=== PATIENT | female | born 1940 | race Native Hawaiian/Other Pacific Islander ===

== ENCOUNTER 2016-08-05 10:37 | Outpatient (CLI) | payer OTHER | END 2016-08-05 19:05 | disposition home or self-care (01) | LOC: US 10:37 | DX: E04.1 Nontoxic single thyroid nodule (principal) ==

== ENCOUNTER 2017-01-14 09:05 | Outpatient (CLI) | payer OTHER | END 2017-01-14 10:35 | disposition home or self-care (01) | LOC: US 09:05 | DX: M79.604 Pain in right leg (principal) ==

== ENCOUNTER 2017-07-15 07:57 | Outpatient (CLI) | payer OTHER ==
[2017-07-15 09:33] LABS: POTASSIUM 3.9 mmol/L (3.6-5.2)
== END 2017-07-15 19:11 | disposition home or self-care (01) ==
LOC: US 07:57
PROVIDERS: Internal Medicine Endocrinology, Diabetes & Metabolism
DX: E04.2 Nontoxic multinodular goiter (principal); R00.2 Palpitations; E78.4 Other hyperlipidemia
CPT/HCPCS: 36415; 80053; 80061

== ENCOUNTER 2017-08-24 10:28 | Outpatient (CLI) | payer OTHER | END 2017-08-24 19:56 | disposition home or self-care (01) | LOC: LABW 10:28 | DX: R76.0 Raised antibody titer (principal); H16.223 Keratoconjunctivitis sicca, not specified as Sjogren's, bilateral | CPT/HCPCS: 36415; 82784; 82785; 85651; 86140 ==

== ENCOUNTER 2018-07-21 08:24 | Outpatient (CLI) | payer OTHER ==
[2018-07-21 08:53] LABS: PLATELET COUNT 209 K/uL (152-353)
[2018-07-21 09:00] LABS: POTASSIUM 3.7 mmol/L (3.6-5.2)
== END 2018-07-21 19:13 | disposition home or self-care (01) ==
LOC: LABW 08:24
PROVIDERS: Specialist
DX: I10 Essential (primary) hypertension (principal); E04.2 Nontoxic multinodular goiter; I77.9 Disorder of arteries and arterioles, unspecified; Z79.899 Other long term (current) drug therapy
CPT/HCPCS: 36415; 80048; 80061; 80076; 84439; 84443; 84480; 85027

== ENCOUNTER 2018-10-31 07:03 | Outpatient (CLI) | payer OTHER | END 2018-10-31 22:44 | disposition home or self-care (01) | LOC: LABW 07:03 | PROVIDERS: Specialist | DX: I10 Essential (primary) hypertension (principal); E78.49 Other hyperlipidemia | CPT/HCPCS: 36415; 80061; 80076 ==

== ENCOUNTER 2018-12-30 08:29 | Outpatient (CLI) | payer OTHER ==
[2018-12-30 10:13] LABS: PLATELET COUNT 193 K/uL (152-353)
[2018-12-30 10:27] LABS: POTASSIUM 3.8 mmol/L (3.6-5.2)
== END 2018-12-30 22:58 | disposition home or self-care (01) ==
LOC: LABW 08:29
PROVIDERS: Nurse Practitioner Family
DX: H16.223 Keratoconjunctivitis sicca, not specified as Sjogren's, bilateral (principal); M25.551 Pain in right hip; R76.0 Raised antibody titer; R79.89 Other specified abnormal findings of blood chemistry
CPT/HCPCS: 36415; 80053; 85027; 85651; 86140

== ENCOUNTER 2019-01-05 10:51 | Outpatient (CLI) | payer OTHER | END 2019-01-05 19:53 | disposition home or self-care (01) | LOC: RAD 10:51 | DX: M25.551 Pain in right hip (principal) ==

== ENCOUNTER 2019-01-17 14:45 | Outpatient (CLI) | payer OTHER | END 2019-01-17 23:28 | disposition home or self-care (01) | LOC: RAD 14:45 | DX: R10.84 Generalized abdominal pain (principal) ==

== ENCOUNTER 2019-03-14 07:01 | Outpatient (CLI) | payer OTHER ==
[2019-03-14 07:57] LABS: POTASSIUM 3.9 mmol/L (3.6-5.2)
[2019-03-14 08:03] LABS: PLATELET COUNT 222 K/uL (152-353)
== END 2019-03-14 19:20 | disposition home or self-care (01) ==
LOC: LAB 07:01
PROVIDERS: Nurse Practitioner Family
DX: E55.9 Vitamin D deficiency, unspecified (principal); E56.8 Deficiency of other vitamins; H16.223 Keratoconjunctivitis sicca, not specified as Sjogren's, bilateral; R76.0 Raised antibody titer; R79.89 Other specified abnormal findings of blood chemistry
CPT/HCPCS: 36415; 80053; 82306; 85027; 85651; 86140

== ENCOUNTER 2019-04-21 08:57 | Outpatient (CLI) | payer OTHER | END 2019-04-21 19:27 | disposition home or self-care (01) | LOC: RESP 08:57 | DX: H16.223 Keratoconjunctivitis sicca, not specified as Sjogren's, bilateral (principal) ==

== ENCOUNTER 2019-08-30 07:45 | Outpatient (CLI) | payer OTHER ==
[2019-08-30 08:54] LABS: POTASSIUM 5.6 mmol/L (3.6-5.2)
== END 2019-08-30 22:21 | disposition home or self-care (01) ==
LOC: LABW 07:45
PROVIDERS: Nurse Practitioner
DX: I48.91 Unspecified atrial fibrillation (principal)
CPT/HCPCS: 36415; 80048

== ENCOUNTER 2019-09-29 06:59 | Outpatient (CLI) | payer OTHER ==
[2019-09-29 09:09] LABS: POTASSIUM 3.8 mmol/L (3.6-5.2)
== END 2019-09-29 18:54 | disposition home or self-care (01) ==
LOC: LAB 06:59
PROVIDERS: Specialist
DX: I48.91 Unspecified atrial fibrillation (principal); I10 Essential (primary) hypertension
CPT/HCPCS: 36415; 80048; 83735

== ENCOUNTER 2020-01-04 08:30 | Outpatient (CLI) | payer OTHER | END 2020-01-04 23:33 | disposition home or self-care (01) | LOC: US 08:30 | DX: E04.2 Nontoxic multinodular goiter (principal) ==

== ENCOUNTER 2020-08-15 12:51 | Outpatient (CLI) | payer OTHER | END 2020-08-15 20:35 | disposition home or self-care (01) | LOC: RESP 12:51 | PROVIDERS: ATTEND Nurse Practitioner Family | DX: M35.01 Sjogren syndrome with keratoconjunctivitis (principal); M85.89 Other specified disorders of bone density and structure, multiple sites; R79.89 Other specified abnormal findings of blood chemistry; Z79.899 Other long term (current) drug therapy ==

== ENCOUNTER 2020-11-14 07:05 | Outpatient (CLI) | payer OTHER ==
[2020-11-14 08:15] LABS: PLATELET COUNT 176 K/uL (152-353)
[2020-11-14 08:29] LABS: POTASSIUM 4.1 mmol/L (3.6-5.2)
== END 2020-11-14 22:00 | disposition home or self-care (01) ==
LOC: LABW 07:05
PROVIDERS: ATTEND Nurse Practitioner Family
DX: E78.49 Other hyperlipidemia (principal); I10 Essential (primary) hypertension; I25.10 Atherosclerotic heart disease of native coronary artery without angina pectoris; I48.91 Unspecified atrial fibrillation; R06.02 Shortness of breath
CPT/HCPCS: 36415; 80048; 80061; 80076; 83880; 84443; 85027

== ENCOUNTER 2021-10-02 16:12 | Outpatient (CLI) | payer OTHER | END 2021-10-02 19:18 | disposition home or self-care (01) | LOC: RESP 16:12 | PROVIDERS: ATTEND Nurse Practitioner Family | DX: H16.223 Keratoconjunctivitis sicca, not specified as Sjogren's, bilateral (principal); M85.89 Other specified disorders of bone density and structure, multiple sites; R76.0 Raised antibody titer; Z79.899 Other long term (current) drug therapy ==

== ENCOUNTER 2021-10-16 10:33 | Outpatient (CLI) | payer OTHER | END 2021-10-16 20:36 | disposition home or self-care (01) | LOC: LABW 10:33 | PROVIDERS: ATTEND Internal Medicine Endocrinology, Diabetes & Metabolism | DX: E04.2 Nontoxic multinodular goiter (principal) | CPT/HCPCS: 36415; 84439; 84443; 84480 ==

== ENCOUNTER 2021-10-29 09:48 | Outpatient (CLI) | payer OTHER | END 2021-10-29 18:53 | disposition home or self-care (01) | LOC: US 09:48 | PROVIDERS: ATTEND Internal Medicine Endocrinology, Diabetes & Metabolism | DX: E04.2 Nontoxic multinodular goiter (principal) ==

== ENCOUNTER 2022-02-03 09:14 | Outpatient (CLI) | payer OTHER | END 2022-02-03 20:30 | disposition home or self-care (01) | LOC: LABW 09:14 | PROVIDERS: ATTEND Internal Medicine Endocrinology, Diabetes & Metabolism | DX: E04.2 Nontoxic multinodular goiter (principal) | CPT/HCPCS: 36415; 84439; 84443; 84480 ==

== ENCOUNTER 2022-04-29 08:34 | Outpatient (CLI) | payer OTHER | END 2022-04-29 19:31 | disposition home or self-care (01) | LOC: CT 08:34 | PROVIDERS: ATTEND Internal Medicine Gastroenterology | DX: Z09 Encounter for follow-up examination after completed treatment for conditions other than malignant neoplasm (principal); Z86.010 Personal history of colon polyps; K57.90 Diverticulosis of intestine, part unspecified, without perforation or abscess without bleeding; K62.5 Hemorrhage of anus and rectum | CPT/HCPCS: 36415; 82565; 84520; Q9963 ==

== ENCOUNTER 2022-09-21 09:18 | Outpatient (CLI) | payer OTHER | END 2022-09-21 19:21 | disposition home or self-care (01) | LOC: RESP 09:18 | PROVIDERS: ATTEND Nurse Practitioner Family | DX: E55.9 Vitamin D deficiency, unspecified (principal); M35.05 Sjogren syndrome with inflammatory arthritis; M85.89 Other specified disorders of bone density and structure, multiple sites; R76.0 Raised antibody titer; Z79.899 Other long term (current) drug therapy ==

== ENCOUNTER 2022-10-01 10:32 | Outpatient (CLI) | payer OTHER | END 2022-10-01 19:44 | disposition home or self-care (01) | LOC: LABW 10:32 | PROVIDERS: ATTEND Internal Medicine Endocrinology, Diabetes & Metabolism | DX: E03.8 Other specified hypothyroidism (principal) | CPT/HCPCS: 36415; 84439; 84443; 84480; 84481 ==

== ENCOUNTER 2022-11-18 09:22 | Outpatient (CLI) | payer OTHER ==
[2022-11-18 10:11] LABS: PLATELET COUNT 207 K/uL (152-353)
[2022-11-18 10:21] LABS: POTASSIUM 3.8 mmol/L (3.6-5.2)
== END 2022-11-18 19:05 | disposition home or self-care (01) ==
LOC: LABW 09:22
PROVIDERS: ATTEND Nurse Practitioner Family
DX: E55.9 Vitamin D deficiency, unspecified (principal); M35.05 Sjogren syndrome with inflammatory arthritis; R76.0 Raised antibody titer; R79.89 Other specified abnormal findings of blood chemistry; Z79.899 Other long term (current) drug therapy
CPT/HCPCS: 36415; 80053; 82306; 85027; 85652; 86140